=== PATIENT | male | born 1990 | race Caucasian/White ===

== ENCOUNTER 2018-03-07 13:49 | Emergency (ER) | payer SELFPAY ==
[2018-03-07 14:16] VITALS: BP 144/86
[2018-03-07] MEDS ORDERED: Ondansetron 4 MG/2 ML SDV IVPUSH ONE (14:44)
[2018-03-07] MEDS ORDERED: Sodium Chloride 0.9% 1,000 ML IV SCH (14:45)
[2018-03-07] MEDS ORDERED: Famotidine 20 MG/2 ML SDV IVPUSH ONE (14:46)
--- NOTE | 2018-03-07 14:47 | EDM.PDOC ---
ED HPI GENERAL MEDICAL PROBLEM - General Chief Complaint: Abdominal Pain Stated Complaint: ABD PAIN AND VOMITING BLOOD X 6 MONTHS Time Seen by Provider: 03/07/18 14:21 Source of Information: Reports: Patient, RN Notes Reviewed History Limitations: Reports: No Limitations - History of Present Illness INITIAL COMMENTS - FREE TEXT/NARRATIVE: The patient reports that he has had nausea and emesis, along with left-sided abdominal pain that radiates to his left flank, for the past 6 months. The nausea and emesis primarily occurs after he eats. The abdominal and flank pain is sharp in character, comes and goes. He states that the pain typically lasts for about 30 minutes, and recurs about every 45 hours. He has not identified any modifiers, except that it often wakes him from sleep. The patient also reports occasional hematemesis. He states that his bowel movements are normal in consistency and color. The patient states that he used to drink about a sixpack of beer per day, but decreased his drinking to one or 2 beers just once or twice a week, about 6 months ago. The patient also reports that he has been taking 4-5 ibuprofen (800-1000 mg) 3- 4 times a week for the past 6 months, to treat his pain. The patient states that he is not been previously medically evaluated for this. When asked why, specifically, he came to the ED today, he stated because he thought it's been going on long enough, and he needed to find out what is wrong , but the patient told the triage nurse that he is afraid of needles, doctors, etc. The patient does not have a PCP. Abdominal Pain Score (Numeric/FACES): 5 - Related Data Allergies Allergy/AdvReac Type Severity Reaction Status Date / Time No Known Allergies Allergy Verified 03/07/18 14:17 Home Meds: Home Meds . 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 ED EXAM, GI/ABD - Physical Exam Exam: See Below Exam Limited By: No Limitations General Appearance: Alert, WD/WN, No Apparent Distress Eyes: Bilateral: Normal Appearance, EOMI Ears: Normal External Exam, Hearing Grossly Normal Nose: Normal Inspection Throat/Mouth: Normal Inspection, Normal Lips, Normal Voice, No Airway Compromise Head: Atraumatic, Normocephalic Neck: Normal Inspection, Full Range of Motion Respiratory/Chest: No Respiratory Distress, Lungs Clear, Normal Breath Sounds, No Accessory Muscle Use Cardiovascular: Normal Peripheral Pulses, Regular Rate, Rhythm, No Edema, No Gallop, No JVD, No Murmur, No Rub GI/Abdominal Exam: Normal Bowel Sounds, Soft, Non-Tender, No Organomegaly, No Distention, No Abnormal Bruit, No Mass (Male) Exam: Deferred Rectal (Males) Exam: Deferred Back Exam: Normal Inspection, Full Range of Motion. No: CVA Tenderness (L), CVA Tenderness (R) Extremities: Normal Inspection, Normal Range of Motion, No Pedal Edema, Normal Capillary Refill Neurological: Alert, Oriented, Normal Cognition, No Motor/Sensory Deficits Psychiatric: Normal Affect Skin Exam: Warm, Dry, Intact, Normal Color, No Rash Course - Vital Signs Last Recorded V/S: Last Vital Signs Temp 36.6 C 03/07/18 14:11 Pulse 79 03/07/18 14:11 Resp 16 03/07/18 14:11 BP 144/86 H 03/07/18 14:11 Pulse Ox 98 03/07/18 14:11 Orthostatic Blood Pressure [ 122/76 Standing] Orthostatic Blood Pressure [ 132/81 Sitting] Orthostatic Blood Pressure [ 123/72 Supine] - Orders/Labs/Meds Labs: Laboratory Tests 03/07/18 03/07/18 Range/Units 14:59 14:59 WBC 7.21 (4.23-9.07) K/mm3 RBC 5.26 (4.63-6.08) M/mm3 Hgb 15.4 (13.7-17.5) gm/L Hct 45.3 (40.1-51.0) % MCV 86.1 (79.0-92.2) fl MCH 29.3 (25.7-32.2) pg MCHC 34.0 (32.2-35.5) g/dl RDW Std Deviation 39.1 (35.1-43.9) fL Plt Count 219 (163-337) K/mm3 MPV 11.9 (9.4-12.3) fl Neutrophils % (Manual) 58 (40-60) % Band Neutrophils % 0 (0-10) % Lymphocytes % (Manual) 37 (20-40) % Atypical Lymphs % 0 % Monocytes % (Manual) 4 (2-10) % Eosinophils % (Manual) 0 L (0.8-7.0) % Basophils % (Manual) 1 (0.2-1.2) Platelet Estimate Adequate RBC Morph Comment Normal Sodium 140 (136-145) mEq/L Potassium 3.7 (3.5-5.1) mEq/L Chloride 103 (98-107) mEq/L Carbon Dioxide 27 (21-32) mEq/L Anion Gap 13.7 (5-15) BUN 17 (7-18) mg/dL Creatinine 1.2 (0.7-1.3) mg/dL Est Cr Clr Drug Dosing 114.53 mL/min Estimated GFR (MDRD) > 60 (>60) mL/min BUN/Creatinine Ratio 14.2 (14-18) Glucose 91 (74-106) mg/dL Calcium 9.6 (8.5-10.1) mg/dL Magnesium 1.8 (1.8-2.4) mg/dl Total Bilirubin 0.6 (0.2-1.0) mg/dL AST 34 (15-37) U/L ALT 67 H (16-63) U/L Alkaline Phosphatase 67 (46-116) U/L Total Protein 8.8 H (6.4-8.2) g/dl Albumin 4.5 (3.4-5.0) g/dl Globulin 4.3 gm/dL Albumin/Globulin Ratio 1.1 (1-2) Lipase 174 (73-393) U/L Meds: Medications Discontinued Medications Generic Name Dose Route Start Last Admin Trade Name Freq PRN Reason Stop Dose Admin Diatrizoate Meglum/Diatrizoate Sod 90 ml 03/07/18 14:50 03/07/18 15:53 Gastrografin 37% PO 03/07/18 14:51 90 ml ONETIME ONE Administration Famotidine 20 mg 03/07/18 14:46 03/07/18 15:02 Pepcid IVPUSH 03/07/18 14:47 20 mg ONETIME ONE Administration Sodium Chloride 1,000 mls @ 150 mls/hr 03/07/18 14:45 03/07/18 15:02 Normal Saline IV 150 mls/hr ASDIRECTED WANDA Administration Iopamidol 100 ml 03/07/18 14:50 03/07/18 15:53 Isovue-300 (61%) IVPUSH 03/07/18 14:51 100 ml ONETIME ONE Administration Ondansetron HCl 4 mg 03/07/18 14:44 03/07/18 15:02 Zofran IVPUSH 03/07/18 14:45 4 mg ONETIME ONE Administration Sodium Chloride 10 ml 03/07/18 14:50 03/07/18 15:02 Saline Flush FLUSH 03/07/18 14:51 10 ml ONETIME ONE Administration - Re-Assessments/Exams Free Text/Narrative Re-Assessment/Exam: 03/07/18 14:46 The patient probably has a gastric ulcer, however, I want to be certain that there is nothing more severe occurring, such as a perforated gastric ulcer or some other anatomic abnormality. I've ordered blood work and a CT scan of his abdomen and pelvis, and we will check orthostatics, as well. In the meantime, the patient will be treated with IV fluid, Pepcid, and Zofran. 03/07/18 14:50 The patient is not orthostatic. 03/07/18 17:00 CT of the abdomen and pelvis with oral and IV contrast is read by Dr. Johnson as: 1. Fatty infiltration within the liver. 2. Slightly prominent size of several proximal small bowel loops with small bowel thickening. Bowel wall thickening involves the duodenum as well. These findings are suspicious for mild nonspecific duodenitis and enteritis. 3. Other incidental findings. 03/07/18 17:28 Test results discussed with the patient. As above, the patient may have some duodenitis and enteritis, etiology unknown. The remainder of his workup tonight was completely unremarkable. The patient may safely be discharged home. I am recommending that he begin taking [id number] famotidine twice a day, and I will refer him to Dr. Bass to arrange for an outpatient EGD. I instructed him to stop taking ibuprofen, or any other NSAID, completely. The patient is agreeable with this plan. Departure - Departure Time of Disposition: 17:29 Disposition: Home, Self-Care 01 Condition: Good Clinical Impression: Duodenitis, Enteritis, Abdominal pain of unknown etiology, Nausea and vomiting - Discharge Information *PRESCRIPTION DRUG MONITORING PROGRAM REVIEWED*: Not Applicable *COPY OF PRESCRIPTION DRUG MONITORING REPORT IN PATIENT KARLA: Not Applicable Instructions: Abdominal Pain, Adult, [id number], Duodenitis Referrals: Javier Bass MD [Physician] - Forms: ED Department Discharge Additional Instructions: You were seen in the emergency room for 6 months of nausea, vomiting, and left- sided abdominal pain. Workup in the ER included blood work, positional blood pressure checks, and a CT scan of your abdomen and pelvis with oral and IV contrast. The CT scan found inflammation of the the first part of your small intestine ( duodenitis), and your upper intestine (enteritis). The cause of the inflammation is not known, only that there is some inflammation. Further evaluation is needed. The remainder of your workup is entirely unremarkable. You are not anemic. No electrolyte or fluid abnormalities. You do not have pancreatitis. We recommend that you begin taking [id number] famotidine (generic for Pepcid), one tablet twice a day. This will help keep the acid in your stomach down. We recommend that you follow-up with the Surgeon Dr. Bass, to arrange for an EGD (a scope of your stomach), for further evaluation. If any other problems, please do not hesitate to return to the ER.
[2018-03-07] MEDS ORDERED: Iopamidol 612 MG/ML 100 ML Bottle IVPUSH ONE (14:50)
[2018-03-07] MEDS ORDERED: Sodium Chloride 0.9% 10 ML Syringe FLUSH ONE (14:50)
[2018-03-07] MEDS ORDERED: Diatrizoate Meglumine/Diatrizoate Sodium 37% 120 ML Bottle PO ONE (14:50)
--- NOTE | 2018-03-07 16:22 | CT ---
CT abdomen and pelvis Technique: Multiple axial sections were obtained from above the dome of the diaphragm inferiorly through the pubic symphysis. Intravenous and oral contrast has been given. Delayed images were obtained through the bladder. Comparison: Previous renal stone protocol CT dated 08/09/15. Findings: Small portion of the visualized lung bases are clear. Liver shows fatty infiltration which is seen on prior CT exam. Spleen appears within normal limits. Adrenal glands show no nodule. Pancreas is within normal limits. Gallbladder contains no calcified gallstones. Kidneys show symmetric contrast enhancement with no hydronephrosis. Very small cortical lesion is seen within the mid right kidney measuring 4 mm which is too small to characterize by Hounsfield unit measurements but most likely represents a minimal cyst. Delayed images shows contrast within the distal ureters and bladder. Aorta shows no aneurysm. No retroperitoneal adenopathy or mesenteric abnormalities are seen. Appendix is felt to be seen and appears normal. No pelvic mass or adenopathy is seen. Mild diverticulosis is seen within the sigmoid colon with no inflammatory change. Several slightly prominent loops of small bowel with mild wall thickening are seen within proximal jejunum and duodenum. Findings are suspicious for a mild area of focal enteritis and duodenitis. Normal-appearing more distal small bowel are seen.. Bone window settings were reviewed which appear within normal limits for the patient's age. Impression: 1. Fatty infiltration within the liver. 2. Slightly prominent size of several proximal small bowel loops with bowel wall thickening. Bowel wall thickening involves the duodenum as well. These findings are suspicious for mild nonspecific duodenitis and enteritis. 2. Other incidental findings. Diagnostic code #3
== END 2018-03-07 17:45 | disposition home or self-care (01) ==
LOC: JD.ED 13:49
DX: K52.9 Noninfective gastroenteritis and colitis, unspecified (principal); K29.80 Duodenitis without bleeding
CPT/HCPCS: 36415; 74177; 80053; 83690; 83735; 85007; 85027; 96361; 96374; 96375; 99284; J2405; J3490; J7040; Q9963; Q9967